=== PATIENT | male | born 1970 | race African-American/Black ===

== ENCOUNTER 2023-12-21 08:21 | Outpatient (AMB) | payer OTHER, SELFPAY ==
--- NOTE | 2023-12-21 08:23 | MHC.OFFVIS ---
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 Patient reports that he has had ongoing pain for about 2-3 months. He was lifting at the gym, doing squats, after this exercise he felt pain across his lower back, particularly the left side. He did have some numbness and tingling radiating down the left leg. He has been working with physical therapy which has helped him significantly. He now has mild pain, mostly felt on with gait initation an getting out of the car. Referred from walk- in center [facility]. Provider Kelly Morton. 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 Also when he is driving a lot, would flare up on left side. Most recent exacerbation recently 2-3 months ago, doing squats at the gym, 60 lbs weight, maybe did it too fast . Lily something across the back, but continued to work out that day. Worse that night, like something got dislocated . Managed it himself first but since pain did not get better, he went to walk in. Referred to PT which has helped most of the pain. Nowadays, pain not as much. Still feels when he is driving 1 1/2 hours, would have left sided buttocks/SI region. When severe, would feel tingling/numbness to left leg/foot. No bladder/bowel changes. Denies weakness. Had first time MRI. COUNT INCLUDES [facility] Medical History (Updated 12/21/23 @ 09:06 by Alejandra Tomlinson MD) Lumbar disc herniation Social History (Updated 12/21/23 @ 08:30 by Lucita Mobley 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 Patient was appropriately conversant and oriented. Good historian. MSK: No specific abnormalities found on inspection of the spine and all extremities. No pain with palpation over the lumbar area. No SI joint tenderness. No GT tenderness. No spinous processes or facet tenderness. Lumbar ROM was full. Bilateral hip, knee and ankle ROM WNL. No ligamentous laxity or crepitance. No increased effusion. Straight-leg raising test negative. FABERE test left positive back pain. Strength is 5/5 in all muscle groups tested. No increased tone noted. Neurological: Neurologic examination of the upper and lower extremities was nonfocal with intact sensation, muscle stretch reflexes and without focal motor deficits . Mcarthur?s negative bilaterally. Babinski was down going bilaterally. Clonus was negative. Gait is non-antalgic without loss of balance. Results Reviewed Results Reviewed: I independently reviewed the results of the following: MRI lumbar spine CD brought in uploaded, independently reviewed. Showed central disc protrusion L5-S1, disc bulge L4-5, going more prominently to the left. I reviewed records from the following: [facility] referral records Assessment & Plan Assessment & Plan (1) Lumbar disc herniation: Code(s): M51.26 - Other intervertebral disc displacement, lumbar region Plan Chronic recurrent left-sided back pain, with MRI showing L4-5 and L5-S1 disc herniation more to the left. Consistent with his symptoms. No red flags or neurologic findings seen on exam today. Physical therapy has already helped his pain level. We talked about treatment options including injections and surgery. There is no indication for surgery at this time as there are no red flags and pain is much improved. We would also reserve injection for when pain exacerbation last longer or does not improve with exercise/therapy. He has decided to watch it for now. We talked about red flags to watch out for. We talked about modifying his exercise/gym routine so as not to exacerbate pain. Assessment and plan discussed with patient, and patient was agreeable. All questions were answered thoroughly. Follow-up 6 months, call sooner if needed. Alejandra Tomlinson MD, VADIM Board Certified, [place] [employer] and Rehabilitation (ABPMR) Board Certified, [place] [employer] Electro[employer]ostic [employer] (ABEM) Coding Level of Care Code New Pt Level 4 (10882) Diagnoses Lumbar disc herniation M51.26
[2023-12-21 08:30] VITALS: BMI 24.8
== END 2023-12-21 09:03 | disposition home or self-care (01) ==
PROVIDERS: Visit Provider Physical Medicine & Rehabilitation
DX: M51.26 Other intervertebral disc displacement, lumbar region (principal)
CPT/HCPCS: 99204

== ENCOUNTER → 2023-12-21 08:21 | Outpatient (BNVA) | payer OTHER, SELFPAY | PROVIDERS: Visit Provider Physical Medicine & Rehabilitation ==

== ENCOUNTER 2024-06-26 08:50 | Outpatient (AMB) | payer OTHER, SELFPAY ==
--- NOTE | 2024-06-26 08:54 | A.OFFVIS_ITS ---
Vital Signs 06/26/24 08:56 Height 5 ft 11 in Weight 178 lb BMI 24.8 Intake Visit Reasons: ov-lower back pain Intake Note: Chaitanya is a 53 year old male who presents today for a follow up of his Lumbar disc herniation. Patient reports he is feeling better today, however when he is diving for a long time he tends to have some pain and also when he is working out at the gym. 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 Also when he is driving a lot, would flare up on left side. Most recent exacerbation recently 2-3 months ago, doing squats at the gym, 60 lbs weight, maybe did it too fast . Arma something across the back, but continued to work out that day. Worse that night, like something got dislocated . Managed it himself first but since pain did not get better, he went to walk in. Referred to PT which has helped most of the pain. Had first time MRI. See below. Since last visit, he's been managing ok. Occasional pain depending on activity/movement/posture. Could be worse the way he slept or if he was working with computer while laying/tilting. No numbness or weakness or bladder/bowel changes. No severe episodes since last visit. 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 Patient was appropriately conversant and oriented. Good historian. MSK: No specific abnormalities found on inspection of the spine and all extremities. No pain with palpation over the lumbar area. Left SI joint tenderness. No GT tenderness. No spinous processes or facet tenderness. Lumbar ROM was full. Neurological: Neurologic examination of the upper and lower extremities was nonfocal with intact sensation, muscle stretch reflexes and without focal motor deficits . Gait is non-antalgic without loss of balance. Results Reviewed Results Reviewed: I independently reviewed the results of the following: MRI lumbar spine CD brought in uploaded, independently reviewed. Showed central disc protrusion L5-S1, disc bulge L4-5, going more prominently to the left. I reviewed records from the following: [facility] [place] referral records Assessment & Plan Assessment & Plan (1) Lumbar disc herniation: Code(s): M51.26 - Other intervertebral disc displacement, lumbar region Category: Medical (2) Sacroiliac joint dysfunction of left side: Code(s): M53.3 - Sacrococcygeal disorders, not elsewhere classified Category: Medical Plan MRI showed L4-5 and L5-S1 disc herniation more to the left but he no long has radiculopathy symptoms. When he does have pain, it appear to be depending on posture/position. He has tenderness over left SI joint. Suspect secondary mechanical lumbopelvic pain affecting SI joint. We talked about ergonomic/position changes to avoid exacerbations. Assessment and plan discussed with patient, and patient was agreeable. All questions were answered thoroughly. He is managing well. He will continue current exercise plan. Follow up as needed. Alejandra Tomlinson MD, VADIM Board Certified, [place] [employer] and [employer] (ABPMR) Board Certified, [place] [employer] Electro[employer] (ABEM) Coding Level of Care Code Est Pt Level 3 (62627) Diagnoses Lumbar disc herniation M51.26 Sacroiliac joint dysfunction of left side M53.3
[2024-06-26 08:56] VITALS: BMI 24.8
== END 2024-06-26 09:11 | disposition home or self-care (01) ==
PROVIDERS: Visit Provider Physical Medicine & Rehabilitation
DX: M51.26 Other intervertebral disc displacement, lumbar region (principal); M53.3 Sacrococcygeal disorders, not elsewhere classified
CPT/HCPCS: 99212

== ENCOUNTER → 2024-06-26 08:50 | Outpatient (BNVA) | payer OTHER, SELFPAY | PROVIDERS: Visit Provider Physical Medicine & Rehabilitation ==